=== PATIENT | female | born 1980 | race Caucasian/White ===

== ENCOUNTER → 2021-10-05 | Day surgery (SDC) | payer OTHER, MEDICAID ==
[~2021-10-05] MED LIST: FENOFIBRATE150 MG PO; LISINOPRIL-HCT1 EAC1 PO; NORCO5 PO; OMEPRAZOLE 20 M20 M1 PO; ZYRTEC10 M4 PO
[2021-10-05 06:30] LABS: HEMATOCRIT 37.4 % (37.0-47.0); HEMOGLOBIN 12.9 gm/dL (12.0-15.0); MCH 33.8 pg (26.0-34.0); MCHC 34.5 g/dL (28.0-37.0); MPV 8.4 fl. (7.2-11.1); RBC 3.81 mil/uL (4.20-5.00); RDW-CV 14.9 % (10.5-14.5); WBC 7.5 thou/uL (4.0-11.0)
[2021-10-05 06:41] LABS: CALCIUM 10.1 mg/dL (8.5-10.1); CREATININE 1.6 mg/dL (0.6-1.3); POTASSIUM 4.1 mmol/L (3.5-5.1)
--- NOTE | 2021-10-05 16:03 | EKG ---
[place] [address] ELECTROCARDIOGRAM REPORT Name: MARYREGIS YANET KEYS Room: [facility]#: [id number] Admission: 10/05/21 Attend Phys: Elsa Jeffries, Discharge: Date of : 78 Date of Service: 10/05/21629 Report #: [id number] THIS REPORT FOR: //name// Test Date: 2021-10-05 Test Time: 06:30:17 Pat Name: REGIS HERNANDEZ Department: Room: Gender: [place] [facility] [place] 1980 Requested By: Elas Jeffries Order Number: [id number] Roro MD: Jason Argueta Measurements Intervals [place] Rate: 82 P: 62 VT: 124 QRS: 60 QRSD: 82 T: 47 QT: 347 QTc: 406 Interpretive Statements Sinus rhythm No previous ECG available for comparison Electronically Signed On 10-05-2021 16:02:57 COSTUME DIRECTOR by Jason Argueta [email or web address] <ELECTRONICALLY SIGNED> By: Jason Argueta MD, [facility] 10/05/21 1602 9 9 Jason Argueta MD, FACC /EPI
--- NOTE | 2021-10-07 14:25 | OP ---
[address] [address] OPERATIVE REPORT Name: REGIS HERNANDEZ Room: [facility].Benny.#: [id number] Admission: 10/05/21 Attend Phys: Elsa Jeffries DO Discharge: Date of : 78 Report #: [id number] THIS REPORT FOR: cc: KIRSTEN MERRILL APRN, ASHLEY APRN Fisher,Elsa Kelly DO ~ DATE OF SURGERY: 10/05/2021 PREOPERATIVE DIAGNOSIS: Incarcerated umbilical hernia. POSTOPERATIVE DIAGNOSIS: Incarcerated umbilical hernia. PROCEDURE: Laparoscopic umbilical herniorrhaphy with mesh. SURGEON: Elsa Jeffries DO ANESTHESIA: General endotracheal and local anesthetic with 0.25% Marcaine. ESTIMATED BLOOD LOSS: 15 mL. INTRAOPERATIVE FINDINGS: A 2 x 2.5 cm fascial defect at the umbilicus with incarcerated preperitoneal fat. A piece of 11.[address] mesh was used for repair. The patient was a difficult IV access patient and therefore after multiple attempts of a peripheral IV a right IJ central line was placed by anesthesia in the operating room prior to induction of anesthesia. INDICATIONS FOR PROCEDURE: The patient is a 41-year-old female who was seen and evaluated in the office with complaints of worsening and increasingly symptomatic umbilical hernia. The patient was explained the procedure, including risks, benefits and alternatives. All questions were answered to the patient's satisfaction and informed consent was obtained. DESCRIPTION OF PROCEDURE: After the patient was brought back to the operating room and placed in the supine position several attempts of IV access by anesthesia and the nursing staff were attempted with ultrasound guidance. Ultimately, the patient was able to have the peripheral IV placed and therefore Anesthesia did place a right internal jugular central line using ultrasound guidance. After a central line was placed, anesthesia was then induced. The patient was intubated and the abdomen was then prepped and draped in the usual sterile fashion. A timeout was performed. Prophylactic antibiotics were administered and SCDs were placed on bilateral lower extremities. Once a timeout was performed the abdomen was accessed via left upper quadrant Veress needle. The abdomen was insufflated to 15 mm of CO2. Next, Using a Visiport technique, a 5 mm trocar was placed in the left lateral mid abdomen. There was noted to be no injury to underlying structures and the Veress needle was noted to be in good position without injury to underlying structures. [place] 5 [place] [id number] OPERATIVE REPORT Name: REGIS HERNANDEZ Room: [facility].#: [id number] Admission: 10/05/21 Attend Phys: Elsa Jeffries DO Discharge: Date of : 78 Report #: [id number] was placed in the left subcostal incision site and additional 8 mm trocar was placed in the left lower quadrant under direct visualization. Next, attention was turned towards the anterior abdominal wall, the patient was noted to have an umbilical hernia containing preperitoneal fat at the distal end of the falciform ligament. This was grasped and retracted just inferior to the umbilicus. Dissection was carried down cephalad using a monopolar hook cautery. There were no further hernias noted along the anterior lower midline. Next, the umbilical contents were then grasped and dissected free in a cephalad direction using manual palpation on the external surface of the skin. The remainder of the preperitoneal fat that was incarcerated was completely reduced in its entirety. At this point, the fascial defect was measured and was noted to be 2 x 2.5 cm in greatest dimension. At this time, an 11.[address] mesh was selected for repair. The abdominal pressure was then turned to 8 mm of CO2. The mesh was then placed intracorporeally and was transfixed to the anterior abdominal wall in the 12, 6, 3 and 9 o'clock positions using a CV-2 Mica-Erick suture and a suture passer. Next, the mesh was circumferentially tacked using a secure strap tacker as well as an OptiFix tacker. This was performed circumferentially as well as a tack within each quadrant. The mesh lied in excellent position with hemostasis that was noted to be excellent. Local anesthetic of 0.25% Marcaine was injected into all incision sites. Next, the abdomen was desufflated. The trocars were removed. The incisions were closed with a 4-0 Monocryl in a subcuticular manner and Dermabond was applied for sterile dressing. A 4 x 4 gauze was rolled and placed within the umbilicus to decrease seroma formation and a Tegaderm dressing was then applied. The patient tolerated the procedure well without any complications. All sponge and instrument count was reported as correct at the end of the case. She was awakened from anesthesia in the operating room and taken to the PACU in stable condition for further recovery. An abdominal binder was placed prior to leaving the operating room. A chest x-ray was performed in the recovery room to ensure appropriate positioning of the central line as well as no evidence of a pneumothorax. <ELECTRONICALLY SIGNED> By: Elsa Jeffries DO 10/07/21 1425 [id number] Jeffries DO /nt
== END | disposition home or self-care (01) ==
LOC: M.SUR 05:21
PROVIDERS: ATTEND Surgery
DX: K42.0 Umbilical hernia with obstruction, without gangrene (principal); Z20.822 Contact with and (suspected) exposure to COVID-19